=== PATIENT | male | born 1975 | race Caucasian/White ===

== ENCOUNTER 2018-06-07 16:55 | Emergency (ER) | payer BC | END 2018-06-07 19:30 | disposition home or self-care (01) | LOC: ED 16:55 | PROC: 0HQ0XZZ Repair Scalp Skin, External Approach (ICD-10-PCS; principal; 2018-06-07) | DX: S01.01XA Laceration without foreign body of scalp, initial encounter (principal); V86.59XA Driver of other special all-terrain or other off-road motor vehicle injured in nontraffic accident, initial encounter; Z23 Encounter for immunization; S30.1XXA Contusion of abdominal wall, initial encounter | CPT/HCPCS: 12002; 70450; 71260; 72125; 74177; 80053; 81001; 85025; 90471; 90715; 96360; 99284; G0480; J7030; Q9967 ==